=== PATIENT | male | born 1990 | race African-American/Black ===

== ENCOUNTER 2022-06-29 14:38 | Emergency (ER) | payer SELFPAY ==
[~2022-06-29] VITALS: Ht 172.7 cm; Wt 70.3 kg
[2022-06-29 14:48] VITALS: BP 138/87
--- NOTE | 2022-06-29 14:48 | NUR ---
Parvin viveros in ED - 06/29/22 at 1558 by BRITNEYO TO ALBERTA VALENZUELA [facility]. BIBAmi C/O SORETHROAT AND HEADACHE X 1 WEEK.
--- NOTE | 2022-06-29 14:48 | NUR ---
TO ER ROOM 19. BIBS C/O SORETHROAT AND HEADACHE X 1 WEEK.
[2022-06-29] MEDS ORDERED: IBUP-1958 PO (16:37)
[2022-06-29] MEDS ORDERED: DEXAMETHASONE 1 MG TABLET ONE (16:49)
[2022-06-29] MEDS ORDERED: PENICILLIN G BENZATHINE 2.4 MMU/4 ML ML IM ONE ×2 (16:50→17:00)
[2022-06-29] MEDS ORDERED: DEXAMETHASONE 4 MG TABLET ONE (16:50)
--- NOTE | 2022-06-29 16:58 | NUR ---
Patient discharged to home in stable condition. Written and verbal after care instructions given. Patient verbalizes understanding of instruction.
[2022-06-29] MEDS ORDERED: DEXAMETHASONE 1 MG TABLET PO ONE (17:00)
== END 2022-06-29 17:01 | disposition home or self-care (01) ==
LOC: ER 14:38
DX: J02.9 Acute pharyngitis, unspecified (principal); Z60.2 Problems related to living alone
CPT/HCPCS: 99283; 96372; J0558; J8540 ×2